=== PATIENT | female | born 1950 | race Caucasian/White ===

== ENCOUNTER → 2018-02-23 17:48 | Outpatient (REF) | payer OTHER, SELFPAY | LOC: LAB 17:48 | PROVIDERS: PCP Family Medicine; Visit Provider Physician Assistant | DX: L08.9 Local infection of the skin and subcutaneous tissue, unspecified (principal); T81.89XA Other complications of procedures, not elsewhere classified, initial encounter | CPT/HCPCS: 87070; 87075; 87205 ==

== ENCOUNTER → 2018-03-24 13:30 | Outpatient (CLI) | payer OTHER, SELFPAY | PROVIDERS: PCP Family Medicine; Visit Provider Family Medicine | DX: M85.852 Other specified disorders of bone density and structure, left thigh (principal); Z78.0 Asymptomatic menopausal state; M06.80 Other specified rheumatoid arthritis, unspecified site | CPT/HCPCS: 77080 ==

== ENCOUNTER → 2018-05-31 10:03 | Outpatient (CLI) | payer OTHER, SELFPAY ==
--- NOTE | 2018-05-31 | DI.MG.S_ITS ---
BILATERAL DIGITAL SCREENING MAMMOGRAM 3D/2D WITH CAD: 05/31/2018 CLINICAL: Routine screening. Family history of breast cancer. Comparison is made to exams dated: 03/08/2017 mammogram, 02/14/2016 mammogram, 02/11/2015 mammogram, 02/03/2013 mammogram, and 02/09/2014 mammogram - [facility]. The tissue of both breasts is heterogeneously dense. This may lower the sensitivity of mammography. Current study was also evaluated with a Computer Aided Detection (CAD) system. No significant masses, calcifications, or other findings are seen in either breast. There has been no significant interval change. IMPRESSION: NEGATIVE There is no mammographic evidence of malignancy. A 1 year screening mammogram is recommended. This exam was interpreted at Station ID: [id number]. NOTE: For mammograms, a report in lay terms will be sent to the patient. Approximately 15% of breast malignancies will not be visualized mammographically. In the management of a palpable breast mass, a negative mammogram must not discourage biopsy of a clinically suspicious lesion. Electronically Signed By: Richard brantley/deisi:05/31/2018 13:45:41 letter sent: Normal Exam ACR BI-RADS Category 1: Negative 3341F
== END ==
PROVIDERS: PCP Family Medicine; Visit Provider Family Medicine
DX: Z12.31 Encounter for screening mammogram for malignant neoplasm of breast (principal); Z80.3 Family history of malignant neoplasm of breast
CPT/HCPCS: 77063; 77067

== ENCOUNTER → 2018-10-11 07:49 | Outpatient (CLI) | payer BC, SELFPAY ==
--- NOTE | 2018-10-11 | DI.ECHO.S_ITS ---
[place] [facility] +---------+ [facility] +---------+ : : [address] : : : : [id number] : : : : Phone: [phone]---------+ Echocardiogram Report + + :Name: SHEA BARAJAS Study Date: 10/11/2018 Height: 66 in : :[facility] Exam Location: [facility] Weight: 95 lb : : Gender: Female BSA: 1.5 m2 : :: 1950 Age: 68 yrs BP: 110/80 mmHg: :Reason For Study: Prosthetic mitral valve : :Ordering Physician: Yaron Pacheco : :Lena Performed By: Beth Page : + + Interpretation Summary 1) Normal left ventricular size, thickness, wall motion, and systolic function (EF 55-60%). 2) Normal right ventricular size with mildly reduced function. 3) The left atrium is severely dilated. 4) There is a mechanical mitral valve that is well seated and opens well. Expected gradient across the mitral valve. 5) Compared to the Echo done 08/27/2017, no significant change. Procedure: A two-dimensional transthoracic echocardiogram with color flow and Doppler was performed. The study quality was technically adequate. Comparison is made with the echocardiogram of 08/30/2017. The heart rate ranged between 54-60 bpm during the study. Left Ventricle: The left ventricle is normal in size, wall thickness, and systolic function without any focal wall motion abnormalities. The ejection fraction is estimated to be 55-60%. There has been no significant change since the previous exam. There are no focal wall motion abnormalities. Diastolic function could not be accurately assessed due to confounding valvular disease. Right Ventricle: The right ventricle is normal size. Right ventricular systolic function is mildly reduced. Atria: The left atrium is severely dilated. Right atrial size is normal. There is no Doppler evidence for an interatrial shunt. Mitral Valve: There is a mechanical mitral valve. The prosthetic mitral valve is well-seated. The gradients for this prosthetic mitral valve are in the normal range. The mitral valve max E velocity is 1.with a mean PG of 1.7 mmHg. The previous velocity was 1.3 with a PG of 2.0 mmHg. There is trace mitral regurgitation. Aortic Valve: The aortic valve is trileaflet. The aortic valve opens well. There is no aortic valve stenosis. There is trace aortic regurgitation. Tricuspid Valve: The tricuspid valve leaflets are thickened and/or calcified, but open well. There is mild tricuspid regurgitation. The right ventricular systolic pressure is estimated to be at least 28 mmHg based on an estimated right atrial pressure of 3 mm Hg. Pulmonic Valve: The pulmonic valve is not well seen, but is grossly normal. There is a trace or physiologic amount of pulmonic regurgitation. Great Vessels: The aortic root is normal size. The ascending aorta is normal in size. The aortic arch is normal in size. The pulmonary artery is not well visualized, but is probably normal size. The IVC is of normal diameter and collapses greater than 50% with a sniff. This suggests a low right atrial pressure of 3 mm Hg. Pericardium/ Pleura There is no pericardial effusion. There is no pleural effusion. MMode/2D Measurements & Calculations LVIDd: 4.4 cm LVOT diam: 2.0 cm LVIDs: 2.9 cm Ao root diam: 2.8 cm FS: 33.8 % asc Aorta Diam: 2.8 cm IVSd: 0.66 cm Ao Arch Diam (Prox Trans): 2.2 cm LVPWd: 0.78 cm LV leroy. diameter/BSA (cm/m^2): 3.0 LV sys. diameter/BSA (cm/m^2): 2.0 LA A2 area: 31.8 cm2 RA long axis: 5.5 cm LA A4 area: 26.0 cm2 RA area: 14.8 cm2 LA length (vol): 5.6 cm RA vol: 34.0 ml LA vol: 125.3 ml RA : 23.3 ml/m2 LA vol index: 86.0 ml/m2 IVC diam: 2.1 cm RVD1 (basal): 3.1 cm Doppler Measurements & Calculations Ao V2 max: 108.5 cm/sec LVOT Max Dandy: 68.8 cm/sec Ao V2 mean: 78.5 cm/sec LV V1 max P.9 mmHg Ao max P.7 mmHg LV V1 VTI: 17.6 cm Ao mean P.7 mmHg ARNOLD(I,D): 2.0 cm2 Ao V2 VTI: 27.0 cm ARNOLD(V,D): 1.9 cm2 sev ratio: 0.65 ARNOLD indexed to BSA (cm^2/m^2): 1.3 MV E max dandy: 149.2 cm/sec TR max dandy: 251.3 cm/sec MV A max dandy: 50.7 cm/sec TR max P.3 mmHg MV E/A: 2.9 PA V2 max: 42.4 cm/sec Med Peak E' Dandy: 6.4 cm/sec PA V2 mean: 31.5 cm/sec E/E' med: 23.3 PA mean P.43 mmHg Lat Peak E' Dandy: 10.3 cm/sec PA Accel Time: 0.14 sec E/E' lat: 14.5 E/e' average: 18.9 MV P1/2t: 56.8 msec MVA(VTI): 2.0 cm2 MV V2 mean: 55.4 cm/sec MV P1/2t max dandy: 149.2 cm/sec MV mean P.7 mmHg MVA(P1/2t): 3.9 cm2 MV V2 VTI: 26.1 cm SV(LVOT): 52.8 ml Reading Physician:04:50 PM
== END ==
PROVIDERS: PCP Family Medicine; Visit Provider Internal Medicine Cardiovascular Disease
DX: I07.1 Rheumatic tricuspid insufficiency (principal); Z95.2 Presence of prosthetic heart valve
CPT/HCPCS: 93306

== ENCOUNTER → 2018-11-03 06:47 | Outpatient (CLI) | payer BC, SELFPAY ==
--- NOTE | 2018-11-03 | DI.CT.S_ITS ---
PROCEDURE: CT HEAD/BRAIN WO/W CON INDICATIONS: numbness TECHNIQUE: 4.5 mm thick angled axial sections acquired from the foramen magnum to the vertex both before and after the administration of intravenous contrast, with coronal and sagittal reformats. For radiation dose reduction, the following was used: automated exposure control, adjustment of mA and/or kV according to patient size. COMPARISON: [facility], CT, HEAD WITHOUT CONTRAST, 09/12/2011, 0:34. FINDINGS: Image quality: Excellent. CSF spaces: There is a mildly hyperintense (28 Hounsfield units) subdural collection seen involving the right frontal region, with a maximum thickness of 8 mm. This is not seen on the prior CT examination. Basal cisterns are patent. Ventricles are symmetric in size and shape. Brain: No midline shift. No intracranial masses. No abnormal intracranial enhancement. There is cerebral volume loss for age. There is periventricular white matter chronic small vessel ischemic change. There is intracranial internal carotid artery atherosclerosis. Skull and face: Calvarium and visualized facial bones appear intact, without suspicious lesions. Sinuses: Visualized sinuses and mastoids are clear. IMPRESSION: Subacute right frontal subdural hematoma. No findings of acute hemorrhage are seen. No masses or abnormal enhancement can be seen. Note: Clinical finding discussed by telephone with Dr. Julio at 9:24 AM [place] time on November 03, 2018. Dictated by: Woody Bean M.D. on 11/03/2018 at 8:20 Approved by: Woody Bean M.D. on 11/03/2018 at 8:25
[2018-11-03 08:20] LABS: Alanine Aminotransferase 22 IU/L (9-52); Albumin 4.3 g/dL (3.5-5.0); Albumin Globulin Ratio 1.8 (1.0-2.8); Alkaline Phosphatase 79 U/L (38-126); Aspartate Aminotransferase 34 IU/L (14-36); Bilirubin Total 0.5 mg/dL (0.2-1.3); Blood Urea Nitrogen 15 mg/dL (7-17); Calcium 9.6 mg/dL (8.4-10.2); Carbon Dioxide 34 mmol/L (22-32); Chloride 101 mmol/L (98-107); Estimated Glomerular Filt Rate > 60.0 mL/min (>60); Globulin 2.4 g/dL (1.7-4.1); Glucose 72 mg/dL (80-110); HEMOLYSIS < 15 (0-50); Sodium 142 mmol/L (137-145); Total Protein 6.7 g/dL (6.3-8.2)
== END ==
PROVIDERS: Family Provider Psychiatry & Neurology Neurology; PCP Family Medicine; Visit Provider Family Medicine
DX: R20.0 Anesthesia of skin (principal); I62.02 Nontraumatic subacute subdural hemorrhage
CPT/HCPCS: 36415; 70470; 80053; Q9967

== ENCOUNTER → 2019-01-03 07:03 | Outpatient (CLI) | payer BC, SELFPAY ==
--- NOTE | 2019-01-03 | DI.MRI.S_ITS ---
PROCEDURE: MR HEAD/BRAIN WO/W CON INDICATIONS: NONTRAUMATIC SUBDURAL HEMORRHAGE TECHNIQUE: Noncontrast axial T1 spin echo, axial T2 fast spin echo, sagittal and axial FLAIR, coronal T2 fast spin echo, axial gradient echo, axial diffusion and ADC through the brain. After the administration of contrast, axial and coronal T1 spin echo with fat saturation through the brain. COMPARISON: [facility], CT, CT HEAD/BRAIN WO/W CON, 11/03/2018, 8:21. FINDINGS: Image quality: Excellent. CSF spaces: Basal cisterns are patent. Ventricles are normal in size and shape. Brain: No midline shift. Small bilateral subdural hematomas, measuring less than 1 cm in thickness and grossly symmetric appearance; this may be a new finding on the left from the prior study dated 11/03/18, or simply better visualized on the current examination due to differences in modality. Based on the signal characteristics this is probably remote subacute blood and correlates to the CT appearance from study dated 11/03/18. Diffuse dural enhancement is seen, with grossly smooth appearance and may be reactive. No enhancing mass identified. There is cerebral volume loss for age. There is periventricular white matter chronic small vessel ischemic change. The brainstem appears normal. Diffusion-weighted images demonstrate no acute ischemic insults. No chronic ischemic insults. Normal intravascular flow voids are present. Skull and face: Calvarial marrow is normal in signal. Orbits appear normal. Sinuses: Sinuses and mastoids appear clear. IMPRESSION: Small bilateral probably remote subacute-chronic evolving subdural hematomas, probably similar to the appearance from the comparison head CT dated 11/03/18. Probable diffuse smooth reactive dural enhancement. No midline shift or evidence of mass effect. Dictated by: Christiano Maria M.D. on 01/03/2019 at 11:19 Approved by: Christiano Maria M.D. on 01/03/2019 at 11:41
== END ==
PROVIDERS: Family Provider Psychiatry & Neurology Neurology; PCP Family Medicine; Visit Provider Psychiatry & Neurology Neurology
DX: I62.00 Nontraumatic subdural hemorrhage, unspecified (principal)
CPT/HCPCS: 70553

== ENCOUNTER → 2019-06-02 13:52 | Outpatient (CLI) | payer BC, SELFPAY ==
[2019-06-02 14:47] LABS: Add Manual Diff / Slide Review NO; Basophils Absolute Auto 0 /uL (0-100); Basophils Percent Auto 0.7 % (0-2); Eosinophils Absolute Auto 100 /uL (0-450); Eosinophils Percent Auto 3.6 % (2-4); Hematocrit 40.7 % (36-46); Hemoglobin 13.9 g/dL (12.0-16.0); Lymphocytes Absolute Auto 1100 /uL (1100-4500); Lymphocytes Percent Auto 29.3 % (25-40); Mean Corpuscular HGB Conc 34.2 % (30-36); Mean Corpuscular Hemoglobin 31.2 PG (26-34); Mean Corpuscular Volume 91.4 fL (80-100); Monocytes Absolute Auto 500 /uL (0-900); Monocytes Percent Auto 14.1 % (3-14); Neutrophils Absolute Auto 2000 /uL (1500-7000); Neutrophils Percent Auto 52.3 % (50-75); Platelet Count 190 X10^3/uL (150-400); Red Blood Cell Count 4.45 X10^6/uL (4.0-5.2); White Blood Cell Count 3.8 X10^3/uL (4.5-11.0)
[2019-06-02 14:59] LABS: Alanine Aminotransferase 20 IU/L (<35); Albumin 4.4 g/dL (3.5-5.0); Albumin Globulin Ratio 1.6 (1.0-2.8); Alkaline Phosphatase 88 U/L (38-126); Aspartate Aminotransferase 39 IU/L (14-36); Bilirubin Total 0.4 mg/dL (0.2-1.3); Blood Urea Nitrogen 18 mg/dL (7-17); Calcium 9.4 mg/dL (8.4-10.2); Carbon Dioxide 32 mmol/L (22-32); Chloride 101 mmol/L (98-107); Estimated Glomerular Filt Rate > 60.0 mL/min (>60); Globulin 2.7 g/dL (1.7-4.1); Glucose 158 mg/dL (80-110); HEMOLYSIS 18 (0-50); Potassium 3.9 mmol/L (3.4-5.1); Sodium 139 mmol/L (137-145); Total Protein 7.1 g/dL (6.3-8.2)
[2019-06-02 15:00] LABS: C-Reactive Protein Quant < 0.5 mg/dL (<1.0)
[2019-06-02 15:10] LABS: Erythrocyte Sedimentation Rate 4 MM/HR (0-20)
== END ==
PROVIDERS: Family Provider Internal Medicine Rheumatology; PCP Family Medicine; Visit Provider Physician Assistant Medical
DX: M06.09 Rheumatoid arthritis without rheumatoid factor, multiple sites (principal)
CPT/HCPCS: 36415; 80053; 85025; 85651; 86140

== ENCOUNTER → 2019-06-15 11:00 | Outpatient (CLI) | payer BC, SELFPAY ==
--- NOTE | 2019-06-15 | DI.MG.S_ITS ---
BILATERAL DIGITAL SCREENING MAMMOGRAM 3D/2D WITH CAD: 06/15/2019 CLINICAL: Routine screening. Family history of breast cancer. Comparison is made to exams dated: 05/31/2018 mammogram, 03/08/2017 mammogram, and 02/14/2016 mammogram - [facility]. The tissue of both breasts is heterogeneously dense. This may lower the sensitivity of mammography. Current study was also evaluated with a Computer Aided Detection (CAD) system. No significant masses, calcifications, or other findings are seen in either breast. There has been no significant interval change. IMPRESSION: NEGATIVE There is no mammographic evidence of malignancy. A 1 year screening mammogram is recommended. This exam was interpreted at Station ID: [id number]. NOTE: For mammograms, a report in lay terms will be sent to the patient. Approximately 15% of breast malignancies will not be visualized mammographically. In the management of a palpable breast mass, a negative mammogram must not discourage biopsy of a clinically suspicious lesion. Electronically Signed By: Lee Ann franklin/deisi:06/15/2019 11:34:37 letter sent: Normal Exam ACR BI-RADS Category 1: Negative 3341F
== END ==
PROVIDERS: PCP Family Medicine; Visit Provider Family Medicine
DX: Z12.31 Encounter for screening mammogram for malignant neoplasm of breast (principal); Z80.3 Family history of malignant neoplasm of breast
CPT/HCPCS: 77063; 77067

== ENCOUNTER → 2019-10-30 15:44 | Outpatient (CLI) | payer BC, SELFPAY ==
--- NOTE | 2019-10-30 | DI.ECHO.S_ITS ---
[place] +---------+ Hospital +---------+ : : [address] : : : : [phone] : : : : Phone: [phone] : : [phone] +---------+ Echocardiogram Report + + :Name: SHEA BARAJAS Study Date: 10/30/2019 Height: 66 in : :[facility] Weight: 96 lb : : Gender: Female BSA: 1.5 m2 : :: 1950 Age: 69 yrs BP: 105/76 mmHg: :Reason For Study: Aortic valve replacement - bioprosthetic : :Ordering Physician: Khadar Christie Performed By: Beth Page : + + Interpretation Summary The left ventricle is normal in size and wall thickness. Left ventricular systolic function is low normal. The ejection fraction is estimated to be 50- 55%. LVEF has not changed significantly since prior study. There are no focal wall motion abnormalities. Diastolic function could not be accurately assessed due to confounding valvular disease. The right ventricle is normal size. Right ventricular systolic function is borderline reduced. The right ventricular systolic pressure is estimated to be at least 26 mmHg based on an estimated right atrial pressure of 3 mm Hg. The left atrium is severely dilated. Right atrial size is normal. There is a mechanical mitral valve. Mitral regurgitation can not be accurately assessed do to shadowing of the mitral valve There is no other significant valvular heart disease. The aortic root is normal size. Procedure: A two-dimensional transthoracic echocardiogram with color flow and Doppler was performed. The study quality was technically adequate. Comparison is made with the echocardiogram of 10/11/2018. The heart rate ranged between 53-57 bpm during the study. Left Ventricle: The left ventricle is normal in size and wall thickness. Left ventricular systolic function is low normal. The ejection fraction is estimated to be 50-55%. There are no focal wall motion abnormalities. Septal motion is consistent with post-operative state. Diastolic function could not be accurately assessed due to confounding valvular disease. Right Ventricle: The right ventricle is normal size. Right ventricular systolic function is borderline reduced. Atria: The left atrium is not well visualized. The left atrium is severely dilated. Right atrial size is normal. There is no Doppler evidence for an interatrial shunt. Mitral Valve: There is a mechanical mitral valve. Mitral regurgitation can not be accurately assessed do to shadowing of the mitral valve. The mitral valve mean gradient is 2.2 mmHg. Aortic Valve: The aortic valve is trileaflet. The aortic valve opens well. There is trace aortic regurgitation. Tricuspid Valve: The tricuspid valve is normal in structure and function. There is mild tricuspid regurgitation. The right ventricular systolic pressure is estimated to be at least 26 mmHg based on an estimated right atrial pressure of 3 mm Hg. Pulmonic Valve: The pulmonic valve is not well visualized. There is no other significant valvular heart disease. Great Vessels: The aortic root is normal size. The ascending aorta is normal in size. The pulmonary is not well visualized. The IVC is of normal diameter and collapses greater than 50% with a sniff. This suggests a low right atrial pressure of 3 mm Hg. Pericardium/ Pleura There is no pericardial effusion. There is no pleural effusion. MMode/2D Measurements & Calculations LVIDd: 4.3 cm LVOT diam: 2.0 cm LVIDs: 2.6 cm Ao root diam: 2.8 cm FS: 40.0 % asc Aorta Diam: 2.6 cm IVSd: 0.54 cm LVPWd: 0.62 cm LV leroy. diameter/BSA (cm/m^2): 2.9 LV sys. diameter/BSA (cm/m^2): 1.8 LA A2 area: 25.2 cm2 RA long axis: 4.9 cm LA A4 area: 18.0 cm2 RA area: 15.9 cm2 LA length (vol): 4.6 cm RA vol: 43.7 ml LA vol: 83.2 ml RA : 29.8 ml/m2 LA vol index: 56.8 ml/m2 IVC diam: 1.7 cm RVD1 (basal): 3.2 cm Doppler Measurements & Calculations Ao V2 max: 116.6 cm/sec LVOT Max Dandy: 71.2 cm/sec Ao V2 mean: 76.7 cm/sec LV V1 max P.0 mmHg Ao max P.4 mmHg LV V1 VTI: 18.1 cm Ao mean P.7 mmHg ARNOLD(I,D): 1.8 cm2 Ao V2 VTI: 30.6 cm ARNOLD(V,D): 1.9 cm2 sev ratio: 0.59 ARNOLD indexed to BSA (cm^2/m^2): 1.3 MV E max dandy: 134.6 cm/sec TR max dandy: 237.8 cm/sec MV A max dandy: 38.7 cm/sec TR max P.6 mmHg MV E/A: 3.5 Med Peak E' Dandy: 5.9 cm/sec E/E' med: 22.8 Lat Peak E' Dandy: 10.5 cm/sec E/E' lat: 12.8 E/e' average: 17.8 MV P1/2t: 50.0 msec MVA(VTI): 1.7 cm2 MV V2 mean: 65.3 cm/sec MV P1/2t max dandy: 133.7 cm/sec MV mean P.2 mmHg MVA(P1/2t): 4.4 cm2 MV V2 VTI: 34.3 cm SV(LVOT): 56.6 ml Reading Physician:07:14 PM
== END ==
PROVIDERS: PCP Family Medicine; Referring Provider Physician Assistant Medical; Visit Provider Physician Assistant Medical
DX: I08.1 Rheumatic disorders of both mitral and tricuspid valves (principal); Z95.2 Presence of prosthetic heart valve
CPT/HCPCS: 93306

== ENCOUNTER → 2020-06-13 10:22 | Outpatient (CLI) | payer BC, SELFPAY ==
[2020-06-13] MEDS: COVID-19 VACC #1, MRNA(MOD) 100 MCG/0.5 ML VIAL IM (10:26)
== END ==
PROVIDERS: PCP Student in an Organized Health Care Education/Training Program; Visit Provider Internal Medicine
DX: Z23 Encounter for immunization (principal)
CPT/HCPCS: 0011A; 91301

== ENCOUNTER → 2020-06-17 12:10 | Outpatient (CLI) | payer BC, SELFPAY ==
--- NOTE | 2020-06-17 | DI.MG.S_ITS ---
BILATERAL DIGITAL SCREENING MAMMOGRAM 3D/2D WITH CAD: 06/17/2020 CLINICAL: Routine screening. Family history of breast cancer. Comparison is made to exams dated: 06/15/2019 mammogram, 05/31/2018 mammogram, and 03/08/2017 mammogram - [facility]. The tissue of both breasts is heterogeneously dense. This may lower the sensitivity of mammography. Current study was also evaluated with a Computer Aided Detection (CAD) system. No significant masses, calcifications, or other findings are seen in either breast. There has been no significant interval change. IMPRESSION: NEGATIVE There is no mammographic evidence of malignancy. A 1 year screening mammogram is recommended. This exam was interpreted at Station ID: [id number]. NOTE: For mammograms, a report in lay terms will be sent to the patient. Approximately 15% of breast malignancies will not be visualized mammographically. In the management of a palpable breast mass, a negative mammogram must not discourage biopsy of a clinically suspicious lesion. Electronically Signed By: Timothy egan/deisi:06/17/2020 14:39:45 letter sent: Normal Exam ACR BI-RADS Category 1: Negative 3341F
== END ==
PROVIDERS: PCP Student in an Organized Health Care Education/Training Program; Referring Provider Student in an Organized Health Care Education/Training Program; Visit Provider Student in an Organized Health Care Education/Training Program
DX: Z12.31 Encounter for screening mammogram for malignant neoplasm of breast (principal); Z80.3 Family history of malignant neoplasm of breast
CPT/HCPCS: 77063; 77067

== ENCOUNTER → 2020-07-11 10:47 | Outpatient (CLI) | payer BC, SELFPAY ==
[2020-07-11] MEDS: COVID-19 VACC #2, MRNA(MOD) 100 MCG/0.5 ML VIAL IM (10:53)
== END ==
PROVIDERS: PCP Student in an Organized Health Care Education/Training Program; Visit Provider Internal Medicine
DX: Z23 Encounter for immunization (principal)
CPT/HCPCS: 0012A; 91301

== ENCOUNTER → 2020-12-02 13:23 | Outpatient (CLI) | payer BC, SELFPAY ==
--- NOTE | 2020-12-02 | DI.ECHO.S_ITS ---
[place] +---------+ Hospital +---------+ : : [address] : : : : [phone] : : : : Phone: [phone] : : [phone] +---------+ Echocardiogram Report + + :Name: SHEA BARAJAS Study Date: 12/02/2020 Height: 66 in : :[facility] ReadingLocation: Weight: 84 lb : : Gender: Female BSA: 1.4 m2 : :: 1950 Age: 70 yrs BP: 115/63 mmHg: :Reason For Study: PRESENCE OF PROSTHETIC HEART VALVE : :Ordering Physician: MICHELLE MISHRA Performed By: Claudette Merino : :Referring: MICHELLE MISHRA : + + Interpretation Summary Normal left ventricle size with ejection fraction 55-60%. Normal right ventricle size with borderline reduced right ventricular systolic function. Severely dilated left atrium. Mild to moderately dilated right atrium. The mechanical mitral valve is well-seated. Mitral regurgitation is present, however its severity cannot be assessed due to shielding from the prosthesis. Mild to moderate tricuspid regurgitation. Comparison is made with the echocardiogram of 10/30/2019, there has been no signifcant change. Procedure: A two-dimensional transthoracic echocardiogram with color flow and Doppler was performed. The study quality was technically adequate. Comparison is made with the echocardiogram of 10/30/2019. The patient was in sinus rhythm with heart rates between 60-67 bpm during the exam. Left Ventricle: The left ventricle is normal in size and wall thickness. The ejection fraction is estimated to be 55-60%. There are no focal wall motion abnormalities. Diastolic function could not be accurately assessed due to confounding valvular disease. Right Ventricle: The right ventricle is normal size. Right ventricular systolic function is borderline reduced. Atria: The left atrium is severely dilated. The right atrium is mild to moderately dilated. There is no Doppler evidence for an interatrial shunt. Mitral Valve: There is a mechanical mitral valve. The prosthetic mitral valve is well-seated. Mitral regurgitation is present, however its severity cannot be assessed due to shielding from the prosthesis. Aortic Valve: The aortic valve is trileaflet. The aortic valve opens well. The aortic valve is slightly calcified. There is no aortic valve stenosis. No aortic regurgitation is present. Tricuspid Valve: The tricuspid valve is normal in structure and function. There is mild to moderate tricuspid regurgitation. The right ventricular systolic pressure is estimated to be at least 31 mmHg based on an estimated right atrial pressure of 3 mm Hg. Pulmonic Valve: The pulmonic valve leaflets are thin and pliable; valve motion is normal. There is no pulmonic valvular regurgitation. Great Vessels: The aortic root is normal size. The ascending aorta could not be visualized. The IVC is of normal diameter and collapses greater than 50% with a sniff. This suggests a low right atrial pressure of 3 mm Hg. Pericardium/ Pleura There is no pericardial effusion. There is no pleural effusion. MMode/2D Measurements & Calculations LVIDd: 3.9 cm LVOT diam: 2.0 cm LVIDs: 2.6 cm Ao root diam: 2.6 cm FS: 33.3 % Ao Arch Diam (Prox Trans): 2.3 cm IVSd: 0.70 cm LVPWd: 0.93 cm LV leroy. diameter/BSA (cm/m^2): 2.8 LV sys. diameter/BSA (cm/m^2): 1.9 LA A2 area: 26.9 cm2 RA long axis: 5.4 cm LA A4 area: 25.4 cm2 RA area: 19.4 cm2 LA length (vol): 6.3 cm RA vol: 59.0 ml LA vol: 91.6 ml RA : 42.7 ml/m2 LA vol index: 66.2 ml/m2 IVC diam: 1.5 cm RVD1 (basal): 2.4 cm TAPSE: 1.3 cm Doppler Measurements & Calculations Ao V2 max: 112.2 cm/sec LVOT Max Dandy: 63.9 cm/sec Ao V2 mean: 81.5 cm/sec LV V1 max P.6 mmHg Ao max P.0 mmHg LV V1 VTI: 15.6 cm Ao mean P.9 mmHg ARNOLD(I,D): 1.7 cm2 Ao V2 VTI: 27.9 cm ARNOLD(V,D): 1.7 cm2 sev ratio: 0.56 ARNOLD indexed to BSA (cm^2/m^2): 1.2 MV E max dandy: 142.2 cm/sec TR max dandy: 242.3 cm/sec MV A max dandy: 58.9 cm/sec TR max P.5 mmHg MV E/A: 2.4 PA pr(Accel): 24.2 mmHg Med Peak E' Dandy: 6.2 cm/sec E/E' med: 23.1 Lat Peak E' Dandy: 10.6 cm/sec E/E' lat: 13.4 E/e' average: 18.2 MV dec time: 0.17 sec MVA(VTI): 1.5 cm2 MV V2 mean: 63.4 cm/sec SV(LVOT): 47.7 ml MV mean P.0 mmHg MV V2 VTI: 32.6 cm Electronically signed by: Ignacia Daniel on Reading Physician:12/02/2020 05:15 PM
== END ==
PROVIDERS: PCP Family Medicine; Referring Provider Internal Medicine Cardiovascular Disease; Visit Provider Internal Medicine Cardiovascular Disease
DX: I08.1 Rheumatic disorders of both mitral and tricuspid valves (principal); Z95.2 Presence of prosthetic heart valve
CPT/HCPCS: 93306

== ENCOUNTER → 2021-08-05 09:59 | Outpatient (CLI) | payer BC, SELFPAY ==
--- NOTE | 2021-08-05 | DI.MG.S_ITS ---
BILATERAL DIGITAL SCREENING MAMMOGRAM 3D/2D WITH CAD: 08/05/2021 CLINICAL: Routine screening. Family history of breast cancer. Comparison is made to exams dated: 06/17/2020 mammogram, 06/15/2019 mammogram, and 05/31/2018 mammogram - [facility]. There are scattered fibroglandular elements in both breasts. Current study was also evaluated with a Computer Aided Detection (CAD) system. No significant masses, calcifications, or other findings are seen in either breast. There has been no significant interval change. IMPRESSION: NEGATIVE There is no mammographic evidence of malignancy. A 1 year screening mammogram is recommended. This exam was interpreted at Station ID: [id number]. NOTE: For mammograms, a report in lay terms will be sent to the patient. Approximately 15% of breast malignancies will not be visualized mammographically. In the management of a palpable breast mass, a negative mammogram must not discourage biopsy of a clinically suspicious lesion. Electronically Signed By: Amy mccoy/deisi:08/05/2021 12:07:38 letter sent: Normal Exam ACR BI-RADS Category 1: Negative 3341F
== END ==
PROVIDERS: PCP Family Medicine; Referring Provider Specialist; Visit Provider Specialist
DX: Z12.31 Encounter for screening mammogram for malignant neoplasm of breast (principal); Z80.3 Family history of malignant neoplasm of breast
CPT/HCPCS: 77063; 77067

== ENCOUNTER 2021-10-11 07:34 | Emergency (ER) | payer BC, SELFPAY ==
[2021-10-11 07:35] VITALS: BP 131/60; PULSE 73; RESP 18; TEMP 37; O2SAT 99; BMI 33.0
[2021-10-11 07:42] VITALS: BP 131/60; PULSE 72; O2SAT 97
--- NOTE | 2021-10-11 07:51 | ED.GENADULT ---
HPI - General Adult General Chief complaint: Upper Respiratory Symptoms Stated complaint: think she has an infection of the epiglottis Time Seen by Provider: 10/11/21 07:49 Source: patient Mode of arrival: Ambulatory Limitations: no limitations History of Present Illness HPI narrative: 71-year-old female with complaint of sore throat. Patient states she started with sore throat yesterday, she woke up about 1:00 a.m. this morning with fever, her voice is slightly hoarse, she has not had any cold, cough or congestion. Patient does not feel like her throat is closing. She states it feels like her posterior throat and not lower in her neck. She did have epiglottitis around 2005, she states she was in hospital but was ultimately discharged after a day. She said the pain feels a little bit similar but is higher up than last time. She is not having any trouble breathing. She states she was discharged home on steroids and antibiotics she was not intubated. This was in [facility] on a trip she has not had any other episodes or recurrences. She does have rheumatoid arthritis and is on leflunomide and hydroxychloroquine daily. Patient states she is allergic to Cipro, codeine and morphine. No tobacco, no alcohol or illicit. Related Data Home Medications Medication Instructions Recorded Confirmed warfarin 5 mg tablet (Coumadin) #0 11/17/10 11/22/20 acyclovir 200 mg capsule 200 mg PO QID PRN 10/15/20 11/22/20 atenolol 25 mg tablet 25 mg PO BID #0 tab 10/15/20 11/22/20 hydroxychloroquine 200 mg tablet 200 mg PO DAILY 10/15/20 11/22/20 leflunomide 20 mg tablet 20 mg PO DAILY 10/15/20 11/22/20 oxycodone 5 mg tablet 10 mg PO Q4H PRN tab 10/15/20 11/22/20 Previous Rx's Medication Instructions Recorded estradiol 10 mcg vaginal tablet 10 mcg VAGINAL 2XW #24 tab 11/22/20 (Yuvafem) estradiol 1 g VAGINAL 2XW #42.5 g 09/23/21 amoxicillin 500 mg tablet 500 mg PO TID #30 tab 10/11/21 Allergies Allergy/AdvReac Type Severity Reaction Status Date / Time ciprofloxacin Allergy Unknown Verified 10/15/20 09:18 codeine AdvReac Mild PASSED OUT Verified 10/15/20 09:18 morphine AdvReac Mild NAUSEA Verified 10/15/20 09:18 Review of Systems Review of Systems ROS Unobtainable: All systems reviewed & are unremarkable except as noted in HPI and below Patient History Medical History Low libido (2019) Post-menopausal Social History Smoking Status: Never smoker Smoking Status: Never smoker Exam Narrative Exam Narrative: GEN: well nourished, well appearing female, alert and oriented x 3, patient appears to be in mild distress. Patient resting comfortably sitting back in the bed. HEENT: Atraumatic, pupils are equal round reactive to light, extraocular movements are intact, nares are clear, TMs are clear with no fluid, there is no conjunctival pallor. Throat is erythematous, right tonsillar exudates, erythema, bilateral tonsillar enlargement with no uvular deviation, slightly hoarse, no stridor, no difficulty swallowing secretions are saliva, no lymphadenopathy. HEART: Regular rate and rhythm without murmur, clicks, rubs. LUNGS:Lungs clear to auscultation, no wheezes, rales, crackles, chest moves symmetrically ABD:bowel sounds normal, soft, non-tender, no guarding, rebound, rigidity, no masses noted, no hepatosplenomegaly :No CVA tenderness MSCL: full range of motion NEURO: Cranial nerves 2-12 intact. SKIN: No rash, erythema or other skin changes. Initial Vital Signs Initial Vital Signs: Vital Signs Temperature 98.6 F 10/11/21 07:35 Pulse Rate 73 10/11/21 07:35 Respiratory Rate 18 10/11/21 07:35 Blood Pressure 131/60 10/11/21 07:35 Pulse Oximetry 99 10/11/21 07:35 Course Orders Ordered: ED Orders 10/11/21 07:44 COVID19 -Nasal RAPID/Pre-Proc Stat Throat Culture Stat Discontinued Medications Amoxicillin (Amoxicillin 250 Mg Capsule) 500 mg PO NOW ONE Stop: 10/11/21 08:16 Last Admin: 10/11/21 08:24 Dose: 500 mg Documented by: BARRINGTON Dexamethasone (Dexamethasone 10 Mg/Ml Vial) 10 mg PO NOW ONE Stop: 10/11/21 08:16 Last Admin: 10/11/21 08:23 Dose: 10 mg Documented by: BARRINGTON Vital Signs Vital signs: Vital Signs - 8 hr 10/11/21 07:35 10/11/21 07:42 10/11/21 08:19 Temperature 98.6 F Pulse Rate 73 72 67 Respiratory Rate 18 16 Blood Pressure 131/60 131/60 116/55 L Pulse Oximetry 99 97 Medical Decision Making Lab Data Labs: Lab Results 10/11/21 Range/Units 07:44 SARS-CoV-2 (PCR) Negative (Negative) Point of Care Testing Rapid Strep A Negative Point of care testing: Point of Care Testing Rapid Strep A Negative MDM Narrative Medical decision making narrative: Female presents for sore throat in the last 24 hours. Patient took a rapid COVID test at home which was negative and her 1st 12 hours of symptoms. She presents today because she has had increasing pain and fever overnight. Patient's rapid strep is negative but she meets 3/4 Cent[facility] criteria. COVID swab is negative. Throat culture was sent but patient was given dose of dexamethasone and started on oral antibiotics. Patient does not have any signs clinically of epiglottitis she has had a prior episode reported the past which she states she was not intubated she was kept in the ER throughout the day but states she was ultimately discharged home after improving significantly with medications and per patient request. Discharge Plan Departure Patient Disposition: Home Clinical Impression: Pharyngitis Instructions: DI for Pharyngitis/Tonsillopharyngitis -- Adult Activity Restrictions/Additional Instructions: Follow-up if your symptoms are not improving over the next 5 days. Your initial rapid strep is negative but I suspect you may have a bacterial infection, COVID swab today is negative. A throat culture has been sent and take 2-3 days to result. You would be contacted if there was resistance on your throat culture. You may take Tylenol and/or ibuprofen as needed for pain. You can gargle with warm salt water daily. Take antibiotics until completely gone. Prescription sent to [facility] in [place] Please return for fevers, increasing swelling, muffled voice, stridor or high-pitched wheezing, inability to swallow your own secretions, new swelling of your face, throat, passing out, persistent vomiting or any other new or concerning symptoms. Prescriptions: New amoxicillin 500 mg tablet 500 mg PO TID Qty: 30 0RF No Action warfarin [Coumadin] 5 MG tablet Qty: 0 0RF atenolol 25 mg tablet 25 mg PO BID Qty: 0 0RF estradiol 0.01 % (0.1 mg/gram) cream 1 g vaginal 2XW Qty: 42.5 3RF hydroxychloroquine 200 mg tablet 200 mg PO DAILY 0RF leflunomide 20 mg tablet 20 mg PO DAILY 0RF oxycodone 5 mg tablet 10 mg PO Q4H PRN0RF Rx Instructions: 35-40mg daily PRN acyclovir 200 mg capsule 200 mg PO QID PRN (Reason: cold sores) 0RF estradiol [Yuvafem] 10 mcg tablet 10 mcg vaginal 2XW Qty: 24 3RF Referrals: Jose Tomlinson MD [Primary Care Provider] -
[2021-10-11 08:18] LABS: COVID19 -Nasal RAPID Negative (Negative)
[2021-10-11 08:19] VITALS: BP 116/55; PULSE 67; RESP 16
[2021-10-11] MEDS: DEXAMETHASONE 10 MG/ML VIAL PO (08:23)
[2021-10-11] MEDS: AMOXICILLIN 250 MG CAPSULE 500 MG PO (08:24)
== END 2021-10-11 08:36 | disposition home or self-care (01) ==
PROVIDERS: Emergency Provider Emergency Medicine; PCP Family Medicine
DX: J02.9 Acute pharyngitis, unspecified (principal); Z20.822 Contact with and (suspected) exposure to COVID-19
CPT/HCPCS: 87070; 87077; 87147; 87635; 87880; 99283; C9803; J1100

== ENCOUNTER → 2022-08-25 08:14 | Outpatient (CLI) | payer BC, SELFPAY ==
--- NOTE | 2022-08-25 | DI.MG.S_ITS ---
BILATERAL DIGITAL SCREENING MAMMOGRAM 3D/2D WITH CAD: 08/25/2022 CLINICAL: Routine screening. Family history of breast cancer. Comparison is made to exams dated: 08/05/2021 mammogram, 06/17/2020 mammogram, and 06/15/2019 mammogram - [facility]. Both breasts are heterogeneously dense, which may obscure small masses (category c / 51-75% glandular tissue). Current study was also evaluated with a Computer Aided Detection (CAD) system. No significant masses, calcifications, or other findings are seen in either breast. There has been no significant interval change. IMPRESSION: NEGATIVE There is no mammographic evidence of malignancy. A 1 year screening mammogram is recommended. Based on the Tyrer Cuzick model (a risk assessment model) the patient's lifetime risk is 4.5% and her 10 year risk is 3.4%. According to the ACR, ACS, and NCCN guidelines, an annual breast MRI exam along with mammogram is recommended if the patient's lifetime risk is 20% or greater. This exam was interpreted at Station ID: [id number]. NOTE: For mammograms, a report in lay terms will be sent to the patient. Approximately 15% of breast malignancies will not be visualized mammographically. In the management of a palpable breast mass, a negative mammogram must not discourage biopsy of a clinically suspicious lesion. Electronically Signed By: Amy mccoy/deisi:08/25/2022 12:22:56 letter sent: Normal Exam ACR BI-RADS Category 1: Negative 3341F
== END ==
PROVIDERS: PCP Family Medicine; Referring Provider Specialist; Visit Provider Specialist
DX: Z12.31 Encounter for screening mammogram for malignant neoplasm of breast (principal); Z80.3 Family history of malignant neoplasm of breast
CPT/HCPCS: 77063; 77067

== ENCOUNTER → 2023-05-19 13:22 | Outpatient (CLI) | payer BC, SELFPAY ==
--- NOTE | 2023-05-19 | DI.NM.S_ITS ---
PROCEDURE: NM ROLAND PERF SPECT R&S PHARM Rest and pharmacological stress myocardial perfusion SPECT with gated imaging and ejection fraction RADIOPHARMACEUTICAL: 26.2 mCi Tc-99m tetrafosmin IV at rest and 26.1 mCi Tc-99m tetrafosmin IV at peak effect of pharmacological stress. [id number]-[id number] was performed. INDICATIONS: Precordial pain TECHNIQUE: Radiopharmaceutical was injected at peak stress test, and also at rest. SPECT images were obtained. SPECT myocardial perfusion images were displayed in short axis, horizontal long axis, and vertical long axis views. Gated images were reviewed using Citizengine software. COMPARISON: None. CARDIAC STRESS: A pharmacologic stress test was performed under the supervision of an attending staff, using an infusion of lexiscan 0.4mg IV X1. Hemodynamic data: There is normal blood pressure and heart rate response to pharmacologic stress. Symptoms: The patient denied anginal chest pain. Aminophylline: none EKG: No diagnostic changes of ischemia with lexiscan; no ectopy. FINDINGS: Raw data: There is good myocardial uptake of radiotracer. No significant motion artifacts. Left ventricle function: Gated images demonstrate normal left ventricular wall thickening. No segmental wall motion abnormalities. No transient ischemic dilation; TID is 0.98 (normal less than 1.3). Left ventricle resting end diastolic volume is 76 mL. Left ventricle stress ejection fraction is 67%; normal range is above 45%. Myocardial perfusion: There is normal distribution of activity in the right and left ventricular myocardium. No fixed or reversible perfusion defects. IMPRESSION: Low risk, normal pharmaceutical nuclear stress test with normal LV wall motion and normal systolic function (EF post stress 67%). Dictated by: Verito Stringer MD on 05/21/2023 at 16:11 Approved by: Verito Stringer MD on 05/21/2023 at 16:12
== END ==
PROVIDERS: PCP Family Medicine; Referring Provider Physician Assistant Medical; Visit Provider Physician Assistant Medical
DX: R07.2 Precordial pain (principal)
CPT/HCPCS: 78452; 93017; A9502; J2785

== ENCOUNTER → 2023-06-02 06:51 | Outpatient (CLI) | payer BC, SELFPAY ==
--- NOTE | 2023-06-02 06:53 | DI.ECHO.S_ITS ---
[facility]---------+ [facility] +---------+ : : [address] : [address] : : : : [id number] : : : : Phone: [phone]+ Echocardiogram Report + + :Name: SHEA BARAJAS Study Date: 06/02/2023 Height: 66 in : :[facility] ReadingLocation: Weight: 81 lb : : Gender: Female BSA: 1.4 m2 : :: 1950 Age: 72 yrs BP: 115/67 mmHg: :Reason For Study: ATRIAL FIBRILLATION : :Ordering Physician: REYNA, : :JAYSHREE Performed By: Claudette Merino : :Referring: JAYSHREE ORELLANA : + + Interpretation Summary The ejection fraction is estimated to be 55-60%. Diastolic function could not be accurately assessed due to confounding valvular disease. The left atrium is severely dilated. The right ventricle is normal size. Right ventricular systolic function is borderline reduced. The right atrium is mild to moderately dilated. 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 There is mild tricuspid regurgitation. The right ventricular systolic pressure is estimated to be at least 28 mmHg based on an estimated right atrial pressure of 3 mm Hg. Compared to the prior study dated 12/02/2020, no significant change. Procedure: A two-dimensional transthoracic echocardiogram with color flow and Doppler was performed. The study quality was technically adequate. Comparison is made with the echocardiogram of 12/02/2020. The patient was in sinus bradycardia with heart rates between 53-61 bpm during the exam. Left Ventricle: The left ventricle is normal in size and wall thickness. The ejection fraction is estimated to be 55-60%. Diastolic function could not be accurately assessed due to confounding valvular disease. Right Ventricle: The right ventricle is normal size. Right ventricular systolic function is borderline reduced. Atria: The left atrium is severely dilated. The right atrium is mild to moderately dilated. There is no Doppler evidence for an interatrial shunt. Mitral Valve: There is a mechanical mitral valve. The prosthetic mitral valve is well-seated. The mitral valve mean gradient is 1.9 mmHg. Mitral regurgitation is present, however its severity cannot be assessed due to shielding from the prosthesis. Aortic Valve: The aortic valve is trileaflet. The aortic valve opens well. There is no aortic valve stenosis. There is trace aortic regurgitation. Tricuspid Valve: The tricuspid valve leaflets are thin and pliable. There is mild tricuspid regurgitation. The right ventricular systolic pressure is estimated to be at least 28 mmHg based on an estimated right atrial pressure of 3 mm Hg. Pulmonic Valve: The pulmonic valve is not well visualized. There is no pulmonic valvular regurgitation. Great Vessels: The aortic root is normal size. The dimensions of the ascending aorta are normal. The IVC is of normal diameter and collapses greater than 50% with a sniff. This suggests a low right atrial pressure of 3 mm Hg. Pericardium/ Pleura There is no pericardial effusion. There is no pleural effusion. MMode/2D Measurements & Calculations LVIDd: 3.9 cm LVOT diam: 2.0 cm LVIDs: 2.6 cm Ao root diam: 2.6 cm FS: 35.1 % asc Aorta Diam: 2.4 cm IVSd: 0.75 cm Ao Arch Diam (Prox Trans): 2.3 cm LVPWd: 0.86 cm LV leroy. diameter/BSA (cm/m^2): 2.9 LV sys. diameter/BSA (cm/m^2): 1.9 LA A2 area: 26.4 cm2 RA long axis: 5.1 cm LA A4 area: 26.8 cm2 RA area: 17.1 cm2 LA length (vol): 6.7 cm RA vol: 49.3 ml LA vol: 89.7 ml RA : 36.2 ml/m2 LA vol index: 65.9 ml/m2 IVC diam: 1.4 cm RVD1 (basal): 2.7 cm RVD2 (mid): 1.9 cm TAPSE: 1.2 cm Doppler Measurements & Calculations Ao V2 max: 116.3 cm/sec LVOT Max Rafael: 63.5 cm/sec Ao V2 mean: 87.1 cm/sec LV V1 max P.6 mmHg Ao max P.4 mmHg LV V1 VTI: 16.0 cm Ao mean P.2 mmHg ARNOLD(I,D): 1.7 cm2 Ao V2 VTI: 29.4 cm ARNOLD(V,D): 1.7 cm2 sev ratio: 0.54 ARNOLD indexed to BSA (cm^2/m^2): 1.2 MV E max rafael: 130.5 cm/sec TR max rafael: 249.1 cm/sec MV A max rafael: 52.0 cm/sec TR max P.8 mmHg MV E/A: 2.5 PA V2 max: 52.4 cm/sec Med Peak E' Rafael: 6.7 cm/sec PA V2 mean: 43.0 cm/sec E/E' med: 19.5 PA mean P.77 mmHg Lat Peak E' Rafael: 12.9 cm/sec PA pr(Accel): 17.3 mmHg E/E' lat: 10.1 E/e' average: 14.8 MV dec time: 0.16 sec MVA(VTI): 1.5 cm2 MV V2 mean: 58.0 cm/sec SV(LVOT): 49.0 ml MV mean P.9 mmHg MV V2 VTI: 32.5 cm Reading Physician:09:02 AM
== END ==
PROVIDERS: PCP Family Medicine; Referring Provider Physician Assistant Medical; Visit Provider Physician Assistant Medical
DX: I08.1 Rheumatic disorders of both mitral and tricuspid valves (principal); I48.0 Paroxysmal atrial fibrillation; Z95.2 Presence of prosthetic heart valve
CPT/HCPCS: 93306